=== PATIENT | male | born 1985 | race Hispanic/Latino ===

== ENCOUNTER 2020-08-24 08:30 | Observation (INO) | payer BC ==
[2020-08-23 14:07] LABS: BASOPHILS # (AUTO) 0.1 (0.0-0.1); BASOPHILS % 0.5 % (0.0-1.0); EOSINOPHILS # (AUTO) 0.1 (0.0-0.4); EOSINOPHILS % 0.6 % (0.0-6.0); HEMATOCRIT 49.8 % (38.2-49.6); HEMOGLOBIN 16.8 g/dL (14.0-18.0); LYMPHOCYTES # (AUTO) 1.6 (1.0-3.2); LYMPHOCYTES % 12.3 % (18.0-39.1); MEAN CORPUSCULAR HEMOGLOBIN 29.6 pg (28-32); MEAN CORPUSCULAR HGB CONC 33.7 g/dL (31-35); MEAN CORPUSCULAR VOLUME 87.8 fL (81-99); MONOCYTES # (AUTO) 0.5 (0.2-0.8); MONOCYTES % 3.9 % (4.4-11.3); NEUTROPHILS # (AUTO) 10.3 (2.1-6.9); NEUTROPHILS % 82.3 % (38.7-80.0); PLATELET COUNT 243 x10e3/uL (140-360); RED BLOOD COUNT 5.67 x10e6/uL (4.3-5.7); RED CELL DISTRIBUTION WIDTH 12.4 % (11.7-14.4)
[2020-08-23 14:16] LABS: INR 0.92; PROTHROMBIN TIME 12.8 seconds (11.9-14.5)
[2020-08-23 14:22] LABS: ANION GAP 14.9 mmol/L (8-16); BLOOD UREA NITROGEN 17 mg/dL (7-26); BUN/CREATININE RATIO 20 (6-25); CALCIUM 9.7 mg/dL (8.4-10.2); CARBON DIOXIDE 24 mmol/L (22-29); CHLORIDE 106 mmol/L (98-107); CREATININE, SERUM 0.83 mg/dL (0.72-1.25); EST GLOMERULAR FILTRATION RATE > 60 ML/MIN (60-); GLUCOSE 102 mg/dL (74-118); POTASSIUM 3.9 mmol/L (3.5-5.1); SODIUM 141 mmol/L (136-145)
--- NOTE | 2020-08-23 14:40 | Diagnostic Imaging Report ---
EXAMINATION: CHEST 2 VIEWS INDICATION: Preop for surgery ^PRE OP CXR COMPARISON: None FINDINGS: TUBES and LINES: None. LUNGS: Lungs are well inflated. Lungs are clear. There is no evidence of pneumonia or pulmonary edema. PLEURA: No pleural effusion or pneumothorax. HEART AND MEDIASTINUM: The cardiomediastinal silhouette is unremarkable. BONES AND SOFT TISSUES: No acute osseous lesion. Soft tissues are unremarkable. UPPER ABDOMEN: No free air under the diaphragm. IMPRESSION: No acute thoracic abnormality. Signed by: Dr. Rony Gonsalez M.D. on 08/23/2020 2:36 PM
[~2020-08-24] VITALS: Ht 177.8 cm; Wt 89.4 kg
[~2020-08-24 08:30] MED LIST: IBUPROFEN 800MG/ 200ML 200 ML IV ONE; IBUPROFEN400 MG PO; LIDOCAINE 1% W/EPINEPHRINE 20 ML VIAL ONE; LIDOCAINE HCL (LTA) 4 ML SOLN ONE; THROMBIN FOR SOLN 5,000 UNIT VIAL ONE; VANCOMYCIN HCL 1 GM VIAL ONE
[2020-08-24] MEDS ORDERED: DIAZEPAM5 MG PO (09:13)
[2020-08-24] MEDS ORDERED: PREDNISONE10 MG PO (09:13)
[2020-08-24] MEDS ORDERED: GABAPENTIN400 MG PO (09:13)
[2020-08-24] MEDS ORDERED: CEFAZOLIN SOD 1 GM/NS 50ML 100 ML IV ONE (09:24)
--- NOTE | 2020-08-24 10:52 | Diagnostic Imaging Report ---
EXAMINATION: Lumbar spine radiographs - 1 views CLINICAL HISTORY: Left L5-S1 disc herniation COMPARISON: None. DISCUSSION: Limited intraoperative cross table radiograph of the lumbar spine. Linear radiopaque surgical markers overlie the L5 and S1 vertebra. No acute osseous abnormality given exam limitations. IMPRESSION: 1. Limited intraoperative cross table radiograph of the lumbar spine with linear radiopaque surgical markers overlying the L5 and S1 vertebra. Signed by: Dr. Diego Marsh M.D. on 08/24/2020 10:49 AM
--- NOTE | 2020-08-24 10:54 | Diagnostic Imaging Report ---
EXAMINATION: Lumbar spine radiographs - 1 views CLINICAL HISTORY: Left L5-S1 disc herniation COMPARISON: Intraoperative lumbar spine radiograph performed earlier on the same day (08/24/2020) DISCUSSION: Limited intraoperative cross table radiograph of the lumbar spine. Linear metallic surgical marker overlies the posterior spinal elements at L5-S1. No acute osseous abnormality given exam limitations. IMPRESSION: Limited intraoperative cross table radiograph of the lumbar spine with linear metallic surgical marker overlying the posterior spinal elements at L5-S1. Signed by: Dr. Diego Marsh M.D. on 08/24/2020 10:50 AM
[2020-08-24] MEDS ORDERED: MORPHINE SULFATE INJ 4 MG/ML INJ 1ML IM PRN (11:00)
[2020-08-24] MEDS ORDERED: ONDANSETRON HCL INJ 2MG/ML 2ML 2 MG/ML VIAL IV PRN (11:00)
[2020-08-24] MEDS ORDERED: ACETAMINOPHEN 325 MG TAB PO PRN (11:00)
[2020-08-24] MEDS ORDERED: HYDROMORPHONE 2MG/ML 2 MG/ML ML IV PRN (11:00)
[2020-08-24] MEDS ORDERED: ZOLPIDEM TARTRATE 5 MG TAB PO PRN (11:00)
[2020-08-24] MEDS ORDERED: CEPACOL SORE THROAT LOZENGES PO PRN (11:00)
[2020-08-24] MEDS ORDERED: PROMETHAZINE HCL (IM) 25 MG/ML VIAL IM PRN (11:00)
[2020-08-24] MEDS ORDERED: MAGNESIUM/ALUMINUM/SIMETHICONE 30 ML UDC PO PRN (11:00)
[2020-08-24] MEDS ORDERED: HYDROMORPHONE 1MG/1ML INJ ONE (11:16)
[2020-08-24] MEDS ORDERED: MEPERIDINE HCL INJ 25 MG/ML VIAL ONE (11:32)
--- NOTE | 2020-08-24 11:35 | Operative Report ---
DATE OF PROCEDURE: 08/24/2020 SURGEON: Joaquin Gaxiola MD PREOPERATIVE DIAGNOSIS: Left L5-S1 massive disk herniation with radiculopathy, M51.17. POSTOPERATIVE DIAGNOSIS: Left L5-S1 massive disk herniation with radiculopathy, M51.17. PROCEDURES: Left L5-S1 laminotomy, medial facetectomy, and microsurgical diskectomy, 84014. ANESTHESIA: General. INDICATIONS: The patient is a 35-year-old man, who presents with a massive left L5-S1 disk herniation/rupture with significant compression of the left S1 nerve root and severe left S1 radiculopathy. He was taken to surgery for microsurgical diskectomy. PROCEDURE IN DETAIL: After induction of general anesthesia, the patient was placed on the operating table in prone position over a Darren frame. Lumbar region was prepped and draped in sterile fashion. A preoperative x-ray was obtained. A small midline incision was created. Lumbar fascia was opened to the left of midline and a subperiosteal dissection was carried out to expose the lateral aspect of the spinous process and lamina of L5 and S1, and the medial aspect of the facet joint. A second x-ray confirmed correct localization. The operating microscope was brought in. A high-speed drill equipped with a sylvia bur was used to drill the inferior aspect of the lamina of L5 and the medial rim of the L5-S1 facet joint and the superior aspect of the lamina of S1. The ligamentum flavum was resected and dural sac and the S1 nerve roots were exposed. The S1 nerve root was markedly elevated and compressed by massive underlying disk herniation. The margin between the nerve root and the sequestered disk fragment were carefully defined with a [place] 4 instrument. The extruded disk material was then retrieved with the edge of the ball probe and then grasped with a micropituitary rongeur and then delivered out as a very large fragment of disk, achieving immediate decompression of the S1 nerve root. The nerve root could then be thoroughly retracted medially. The epidural veins were bipolar coagulated and divided with micro scissors. The opening into the annulus of disk was enlarged with a #11 blade and the subligamentous portion of the disk herniation and the loose contents of the L5-S1 disk were evacuated with curettes and pituitary instruments. Excellent decompression was thus achieved. Meticulous hemostasis was secured. The retractor was removed. A small piece of fat harvested from the subcutaneous compartment and was placed over the nerve root. The lumbar fascia was closed with 0 Vicryl sutures. Subcutaneous layer was closed with 2-0 Vicryl sutures. The skin was closed with 3-0 Monocryl sutures in subcuticular fashion. Steri-Strips and dressing were applied. The patient was awakened, extubated, and taken to postanesthesia care unit in stable condition. No intraoperative complications were encountered. Estimated blood loss was minimal. Joaquin Gaxiola MD PP/JEMIMA /[id number]
[2020-08-24] MEDS ORDERED: FENTANYL CITRATE/PF 100MCG/2 ML INJ ONE ×2 (11:45→15:38)
[2020-08-24 12:30] VITALS: BP 145/89
[2020-08-24 13:13] VITALS: BP 145/89
[2020-08-24] MEDS: LACTATED RINGER'S 1,000 ML IV SCH ×2 (13:30→21:50)
[2020-08-24] MEDS: CARISOPRODOL 350 MG TAB PO PRN (14:23)
[2020-08-24] MEDS: OXYCODONE/ACETAMINOPHEN 5-325 1 EACH TABLET PO PRN (14:23)
[2020-08-24] MEDS ORDERED: GLYCOPYRROLATE INJ 0.2 MG/ML VIAL ONE (14:47)
[2020-08-24] MEDS ORDERED: NEOSTIGMINE 1 MG/ML 10ML VIAL ONE (14:47)
[2020-08-24] MEDS ORDERED: PROPOFOL IV EMULSION 10 MG/ML 20 ML VIAL ONE (14:47)
[2020-08-24] MEDS ORDERED: LIDOCAINE HCL 2% JELLY 5 ML TUBE ONE (14:47)
[2020-08-24] MEDS ORDERED: SEVOFLURANE INHAL SOLN 250 ML PEN BTL ONE (14:47)
[2020-08-24] MEDS ORDERED: DEXAMETHASONE SOD PHOS INJ 4 MG/ML VIAL ONE (14:47)
[2020-08-24] MEDS ORDERED: ONDANSETRON HCL INJ 2MG/ML 2ML 2 MG/ML VIAL ONE (14:47)
[2020-08-24] MEDS ORDERED: LIDOCAINE HCL 2% LOCAL INJ 5 ML SDV VIAL INJ ONE (14:47)
[2020-08-24] MEDS ORDERED: ROCURONIUM BROMIDE 10 MG/ML 5ML VIAL IV ONE (14:47)
[2020-08-24] MEDS ORDERED: MIDAZOLAM HCL 2 MG/2 ML VIAL ONE (15:38)
[2020-08-24 16:09] VITALS: BP_SYST 131
[2020-08-24] MEDS: CEFAZOLIN SOD 1 GM/NS 50ML 50 ML IV SCH (17:09)
--- NOTE | 2020-08-24 19:02 | NUR ---
RECEIVED BEDSIDE SHIFT REPORT FROM PREVIOUS NURSE. CALL LIGHT WITHIN REACH. PATIENT WALKING AROUND THE HALLWAY WITH HIS . PATIENT IN NO PAIN OR DISTRESS.
[2020-08-24 19:41] VITALS: BP 131/89
[2020-08-24 20:00] VITALS: BP 127/78
[2020-08-24 21:24] VITALS: BP 127/78
[2020-08-25 00:59] VITALS: BP 131/85
[2020-08-25] MEDS: CEFAZOLIN SOD 1 GM/NS 50ML 50 ML IV SCH ×2 (01:11→08:48)
[2020-08-25] MEDS: OXYCODONE/ACETAMINOPHEN 5-325 1 EACH TABLET PO PRN ×2 (01:38→06:33)
[2020-08-25] MEDS: CARISOPRODOL 350 MG TAB PO PRN ×2 (01:38→06:33)
[2020-08-25 04:00] VITALS: BP 138/103
[2020-08-25] MEDS: LACTATED RINGER'S 1,000 ML IV SCH (06:10)
--- NOTE | 2020-08-25 07:18 | NUR ---
GAVE BEDSIDE SHIFT REPORT TO ONCOMING NURSE. CALL LIGHT WITHIN REACH. PATIENT IN BED. HOURLY ROUNDING PERFORMED.
[2020-08-25 08:16] VITALS: BP 138/103
[2020-08-25 08:25] VITALS: BP 140/89
[2020-08-25] MEDS ORDERED: NORCO 7.5-3251 EACH PO (10:11)
== END 2020-08-25 11:20 | disposition home or self-care (01) ==
LOC: OR 08:30 → PACU V 10:53 → MED/SURG 12:27
PROVIDERS: ADMIT Neurological Surgery; ATTEND Neurological Surgery
DX: M51.17 Intervertebral disc disorders with radiculopathy, lumbosacral region (principal); I10 Essential (primary) hypertension; F41.9 Anxiety disorder, unspecified; Z01.810 Encounter for preprocedural cardiovascular examination; Z01.812 Encounter for preprocedural laboratory examination; Z01.818 Encounter for other preprocedural examination; Z11.59 Encounter for screening for other viral diseases
CPT/HCPCS: 36415; 63047; 71046; 72020; 80048; 85025; 85610; 85730; 86850; 86900; 88304; 93005; G0378 ×2; J0690 ×2; J1100; J1170 ×2; J2001 ×2; J2175; J2250; J2405; J2704; J2710; J3010; J3370; U0002